=== PATIENT | female | born 1980 | race African-American/Black ===

== ENCOUNTER 2020-03-15 14:07 | Emergency (ER) | payer OTHER ==
[~2020-03-15] VITALS: Ht 172.7 cm; Wt 54.4 kg
[2020-03-15 14:07] VITALS: BP_SYST 116
--- NOTE | 2020-03-15 14:07 | NUR ---
Patient triaged,still on ambulance gurney. VSS and patient appears in no acute distress at this time. Accompanied by elementary assistant principal, awaiting available bed, and MD notified of need for MSE.
--- NOTE | 2020-03-15 14:41 | NUR ---
Report given to ZUHAIR Gutierrez.
--- NOTE | 2020-03-15 14:42 | NUR ---
Note chellenny in EDM - 03/15/20 at 1626 by [email or web address] ECG done at bedside as ordered by Dr. Tavarez. Patient tolerated the procedure well. ER Physician given copy of EKG for review.
--- NOTE | 2020-03-15 14:43 | NUR ---
Patient biba in the ED for syncopal episode while exercising today. Denied any chest pain or shortness of breath. Denied any fevers, chills, nausea or vomiting. Patient is alert and oriented x4, respirations even and unlabored, speaking in full sentences, and ambulating with a steady gait. VSS, pain level 0/10. Informed of the approximate wait time. Instructed to notify ED staff for any changes in condition or worsening of symptoms while waiting to be seen by an ED provider. Patient verbalized understanding.
[2020-03-15] MEDS ORDERED: NACL 0.9% 1,000 ML IV ONE (14:45)
--- NOTE | 2020-03-15 15:22 | NUR ---
Administered NS IVF as ordered by Dr. Tavarez. Patient tolerated the medications well. See eMAR for details.
--- NOTE | 2020-03-15 15:33 | NUR ---
MOVED TO BED 2
[2020-03-15 15:48] LABS: BASOPHILS # (AUTO) 0.1 K/uL (0.0-0.2); EOSINOPHILS % (AUTO) 0.2 % (0.0-4.0); HEMATOCRIT 29.3 % (36-48); HEMOGLOBIN 9.3 g/dL (12.0-16.0); LYMPHOCYTES % (AUTO) 12.4 % (20.5-51.5); MEAN CORPUSCULAR HEMOGLOBIN 23 pg (27-31); MEAN CORPUSCULAR HGB CONC 32 % (32-36); MEAN CORPUSCULAR VOLUME 72 fL (79.0-98.0); MONOCYTES # (AUTO) 0.7 K/uL (0.0-1.0); MONOCYTES % (AUTO) 8.9 % (1.7-9.3); NEUTROPHILS # (AUTO) 6.4 K/uL (1.8-7.7); NEUTROPHILS % (AUTO) 77.5 % (40.0-70.0); PLATELET COUNT (AUTO) 257 K/uL (130-430); RED BLOOD CELL COUNT(AUTO) 4.07 MIL/uL (4.2-6.2); WHITE BLOOD COUNT (AUTO) 8.2 K/uL (4.8-10.8)
[2020-03-15 15:56] LABS: CALCIUM 8.6 mg/dL (8.4-11.0); CREATININE 1.24 mg/dL (0.55-1.30); POTASSIUM 3.7 mmol/L (3.5-5.1)
[2020-03-15 16:10] LABS: ALBUMIN 3.6 g/dL (3.4-4.8); THYROID STIMULATING HORMONE 8.63 uIu/mL (0.36-3.74); TOTAL BILIRUBIN 0.6 mg/dL (0.0-1.0)
--- NOTE | 2020-03-15 16:17 | NUR ---
Pt refusing to give urine at this time, notified
[2020-03-15 16:54] VITALS: BP_SYST 116
--- NOTE | 2020-03-15 16:55 | NUR ---
Patient given written and verbal discharge instructions and verbalizes understanding. ER MD discussed with patient the results and treatment provided. Patient in stable condition. ID arm band removed. IV catheter removed intact and dressing applied, no active bleeding. Rx of Ibuprofen given. Patient educated on pain management and to follow up with PMD. Pain Scale 2/10 tolerable for patient . Opportunity for questions provided and answered. Medication side effect fact sheet provided.
== END 2020-03-15 16:54 | disposition home or self-care (01) ==
LOC: SED 14:07
DX: S93.602A Unspecified sprain of left foot, initial encounter (principal); R55 Syncope and collapse; E02 Subclinical iodine-deficiency hypothyroidism; D64.9 Anemia, unspecified; X50.1XXA Overexertion from prolonged static or awkward postures, initial encounter; Y93.89 Activity, other specified; Y92.89 Other specified places as the place of occurrence of the external cause; Y99.8 Other external cause status
CPT/HCPCS: 36415; 73630; 80053; 84439; 84443; 85025; 93005; 96360; 99285; J7030